=== PATIENT | female | born 1995 | race Caucasian/White ===

== ENCOUNTER 2021-06-04 16:05 | Emergency (ER) | payer MEDICAID ==
[~2021-06-04] VITALS: Ht 172.7 cm; Wt 63.5 kg
--- NOTE | 2021-06-04 20:12 | NUR ---
Patient placed in room 4b.
--- NOTE | 2021-06-04 20:15 | NUR ---
pt placed into room 4a
[2021-06-04] MEDS ORDERED: HYDR-4209 PO (20:36)
[2021-06-04 20:49] VITALS: BP 120/79
== END 2021-06-04 20:50 | disposition home or self-care (01) ==
LOC: ER 16:11
DX: K08.89 Other specified disorders of teeth and supporting structures (principal); R51.9 Headache, unspecified
CPT/HCPCS: A4663